=== PATIENT | female | born 1935 | race Caucasian/White ===

== ENCOUNTER → 2016-08-03 | Outpatient (CLI) | payer MEDICARE, BC ==
--- NOTE | 2016-08-03 13:06 | WOMENS IMAGING REPORT ---
EXAM DESCRIPTION: BILAT SCREENING MAMMO W/CAD COMPLETED DATE/TIME: 08/03/2016 10:50 am REASON FOR STUDY: Z12.31, ROUTINE SCREENING MAMMO Z12.31 ENCNTR SCREEN MAMMOGRAM FOR MALIGNANT NEOP LASM OF BELEM COMPARISON: 2008 to 2015 TECHNIQUE: Standard craniocaudal and mediolateral oblique views of each breast recorded using digita l acquisition. LIMITATIONS: None. FINDINGS: RIGHT BREAST MASSES: No suspicious masses. CALCIFICATIONS: No new or suspicious calcifications. ARCHITECTURAL DISTORTION: None. DEVELOPING DENSITY: None. ASYMMETRY: None noted. OTHER: 1.8 cm prominent lymph node in the right axilla not seen previously. LEFT BREAST MASSES: No suspicious masses. CALCIFICATIONS: No new or suspicious calcifications. ARCHITECTURAL DISTORTION: None. DEVELOPING DENSITY: None. ASYMMETRY: None noted. OTHER: No other significant findings. Read with the assistance of CAD. .[facility] - R2 Cenova Version 1.3 .[facility] Imaging - R2 Cenova Version 1.3 .[facility] Imaging - R2 Cenova Version 2.4 .[facility] - R2 Cenova Version 2.4 .[facility] - R2 Miner Helper Version 9.2 IMPRESSION: Prominent right axillary lymph node not seen previously. BREAST DENSITY: b. There are scattered areas of fibroglandular density. BIRAD: 0 Incomplete: Needs Additional Imaging Evaluation and/or prior Mammograms for Comparison. RECOMMENDATION: RECOMMENDED FOLLOW-UP: Right axillary ultrasound. The patient will be contacted for additional imaging. COMMENT: The patient has been notified of the results by letter per SA requirements. Additional no tification policies are in place for contacting patient with suspicious or incomplete findings. Quality ID #[id number]: The [employer] recommends an annual screening mammogram for women aged 40 years or over. This facility utilizes a reminder system to ensure that all patients receive reminder letters, and/or direct phone calls for appointments. This includes reminders for routine scr eening mammograms, diagnostic mammograms, or other Breast Imaging Interventions when appropriate. Th is patient will be placed in the appropriate reminder system. The [employer] (ACR) has developed recommendations for screening MRI of the breast s in certain patient populations, to be used in conjunction with mammography. Breast MRI surveillanc e may be appropriate for women with more than 20% lifetime risk of developing breast cancer as deter mined by genetic testing, significant family history of the disease, or history of mantle radiation f or Hodgkins Disease. ACR Practice Guidelines 2008. TECHNICAL DOCUMENTATION: FINDING NUMBER: (1) ASSESSMENT: (1) JOB ID: [id number] NC-62 2010 [email or web address]- All Rights Reserved
== END ==
LOC: WI 14:27
PROVIDERS: ATTEND Internal Medicine Medical Oncology
DX: Z12.31 Encounter for screening mammogram for malignant neoplasm of breast (principal); R59.0 Localized enlarged lymph nodes
CPT/HCPCS: 77067; G0202

== ENCOUNTER → 2016-08-13 | Outpatient (CLI) | payer MEDICARE, BC ==
--- NOTE | 2016-08-14 14:03 | WOMENS IMAGING REPORT ---
EXAM DESCRIPTION: U/S BREAST UNILAT LIMITED COMPLETED DATE/TIME: 08/13/2016 10:35 am REASON FOR STUDY: R92.2, INCONCLUSIVE MAMMO R92.2 INCONCLUSIVE MAMMOGRAM COMPARISON: Multiple since 2007 TECHNIQUE: Real-time and static grayscale imaging performed of the right breast targeted to the area of mammographic concern. Selected color Doppler images recorded. LIMITATIONS: None. FINDINGS: Ultrasound of the far upper outer quadrant/axilla right breast was performed. There are 2 hypoechoic solid nodules without central hilar fat, worrisome for abnormal lymph nodes. The larger of these two nodules measures 1.7 x 1.2 cm in size, the smaller nodule is 0.8 x 0.8 cm in size. Ultr asound-guided core biopsy of these nodules, with post biopsy clip placement is recommended. IMPRESSION: Solid nodules in the right axilla, may be abnormal lymph nodes. Ultrasound-guided core biopsy and post biopsy clip placement in these nodules is recommended. BIRAD: 4 Suspicious. Biopsy should be considered. RECOMMENDATION: RECOMMENDED FOLLOW-UP: Ultrasound-guided core biopsy and post biopsy clip placement of these right axillary nodules is recommended COMMENT: The [employer] (ACR) has developed recommendations for screening MRI of the breasts in certain patient populations, to be used in conjunction with mammography. Breast MRI s urveillance may be appropriate for women with more than 20% lifetime risk of developing breast cancer as determined by genetic testing, significant family history of the disease, or history of mantle r adiation for Hodgkins Disease. ACR Practice Guidelines 2008. TECHNICAL DOCUMENTATION: JOB ID: [id number] [employer]- All Rights Reserved
== END ==
LOC: WI 09:56
PROVIDERS: ATTEND Internal Medicine Medical Oncology
DX: R92.2 Inconclusive mammogram (principal)
CPT/HCPCS: 76642

== ENCOUNTER → 2016-08-28 | Day surgery (SDC) | payer MEDICARE, BC ==
[~2016-08-28] MED LIST: LIDOCAINE 2% INJ (20 MG/ML) 20 ML MDV ONE
--- NOTE | 2016-09-02 09:12 | WOMENS IMAGING REPORT ---
EXAM DESCRIPTION: U/S BREAST BX; RIGHT DIG DX MAMMO NO CHG COMPLETED DATE/TIME: 08/28/2016 12:34 pm; 08/28/2016 12:43 pm REASON FOR STUDY: N63, BREAST LUMP; S/P US BIOPSY RIGHT AXILLA FOR CLIP PLACEMENT MLO ONLY N63 UNSP ECIFIED LUMP IN BREAST COMPARISON: MULTIPLE SINCE 2008 TECHNIQUE: The procedure was discussed with the patient and the patient agreed to proceed. The patient was scanned and the area of interest in the right axilla 15 cm from the nipple of the rig ht breast was localized. This correlates with the area of concern on prior imaging studies. This are a was targeted for ultrasound-guided core biopsy. After sterile skin prep and 4 mL local lidocaine 1% for skin and deep tissue anesthesia, a 14 gauge c oaxial core biopsy needle was used to obtain several cores of tissue from the lesion. Under ultrasou nd guidance, a ribbon clip was placed in the areas sampled. There were no immediate post-procedure c omplications. MAMMOGRAM: Post-procedure two view mammogram was acquired in the digital mammogram suite. The clip wa s outside the field of view in the axilla. No significant hematoma. Pathology yields a diagnosis of malignancy, metastatic adenocarcinoma, similar to the patient's origi nal right breast primary Pathology is concordant. LIMITATIONS: None. FINDINGS: Ultrasound guided breast biopsy as described above. POST PROCEDURE MAMMOGRAMS FOR MARKER PLACEMENT: Yes IMPRESSION: ULTRASOUND-GUIDED CORE BIOPSY OF THE RIGHT BREAST YIELDS A DIAGNOSIS OF metastatic adeno carcinoma BI-RADS 6 Known biopsy-proven malignancy. Appropriate action should be taken. COMMENT: COMMUNICATION: This result was discussed with the patient, 1400 hours 08/31/2016 Patient medication list reviewed: Yes- Quality ID# [id number]:Eligible professional attests to documenting i n the medical record they obtained, updated, or reviewed the patient's current medications. TECHNICAL DOCUMENTATION: JOB ID: [id number] [employer]- All Rights Reserved
== END ==
LOC: WI 10:27
PROVIDERS: ATTEND Internal Medicine Medical Oncology
PROC: 0HBT3ZX Excision of Right Breast, Percutaneous Approach, Diagnostic (ICD-10-PCS; principal; 2016-08-28)
DX: C77.3 Secondary and unspecified malignant neoplasm of axilla and upper limb lymph nodes (principal); Z17.1 Estrogen receptor negative status [ER-]
CPT/HCPCS: 88185 ×15; 88184; 88233; 88262; 88342 ×2; 88341 ×2; 88305 ×2; 19083; J3490

== ENCOUNTER 2016-09-23 01:28 | Emergency (ER) | payer MEDICARE, BC ==
[2016-09-23] MEDS ORDERED: LIDOCAINE 1% INJ-PF (10 MG/ML) 30 ML SDV INJ ONE (03:06)
--- NOTE | 2016-09-23 03:29 | ER Document Report ---
ED General - General Chief Complaint: Breast Problem Stated Complaint: PAIN IN BREAST Time Seen by Provider: 09/23/16 02:54 Notes: 81-year-old female with right-sided breast cancer status post surgery presents with left breast redness and swelling for 3 or 4 days worsening and refractory to clindamycin which was prescribed by her cancer doctor yesterday. She is apparently scheduled to have a "lanced" on the 80s. No fevers or chills but increasing pain. She has had a cyst there for years but never been this inflamed. TRAVEL OUTSIDE OF THE [place] IN LAST 30 DAYS: No - Related Data Allergies/Adverse Reactions: No Known Drug Allergies Allergy (Mild, Verified 09/23/16 01:52) Past Medical History - General Information source: Patient - Social History Smoking Status: Never Smoker Family History: None Patient has suicidal ideation: No Patient has homicidal ideation: No Renal/ Medical History: Denies: Hx Peritoneal Dialysis Review of Systems - Review of Systems Notes: REVIEW OF SYSTEMS GEN: Denies fever, chills, weight loss ENT: Denies sore throat, nasal discharge, ear pain EYES: Denies blurry vision, eye pain, discharge CV: Denies chest pain, palpitations, edema RESP: Denies cough, shortness of breath, wheezing GI: Denies abdominal pain, nausea, vomiting, diarrhea MSK: Denies joint pain/swelling, edema, SKIN: Denies rash, skin lesions LYMPH: Denies swollen glands/lymph nodes NEURO: Denies headache, focal weakness or numbness, dizziness PSYCH: Denies depression, suicidal or homicidal ideation PHYSICAL EXAMINATION General: No acute distress, well-nourished Head: Atraumatic, normocephalic ENT: Mouth normal, oropharynx moist, no exudates or tonsillar enlargement Eyes: Conjunctiva normal, pupils equal, lids normal Neck: No JVD, supple, no guarding Exam chaperoned by nurse Deena : Breast with an area of induration and fluctuance approximately 10 x 4" surrounding a small "head" positive tenderness. GI: Nondistended, soft, no tenderness to palpation, no rebound or guarding Ext: No deformities, no edema, normal range of motion in upper and lower ext Back: No CVA or midline TTP Skin: No rash, warm Lymphatic: No lymphadeopathy noted Neuro: Awake, alert. Face symmetric. GCS 15. Physical Exam - Vital signs Vitals: Temp Pulse Resp BP Pulse Ox 98.2 F 82 20 148/73 H 96 09/23/16 01:52 09/23/16 01:52 09/23/16 01:52 09/23/16 01:52 09/23/16 01:52 Course - Re-evaluation Re-evalutation: 09/23/16 03:18 Breast abscess with surrounding induration and possible cellulitis. Will incise and drain with patient's verbal consent and prescribed Bactrim. Incised and drained using loop drainage for cosmesis. Patient was educated on management of the loop drain at home and will follow up with her cancer doctor or primary care in 2 days for a wound check. As you stop taking clindamycin and begin Bactrim. I have discussed with the patient there likely diagnosis, aftercare plan, follow-up plans and my usual and customary return precautions. They verbalized understanding of this. - Vital Signs Vital signs: Temp Pulse Resp BP Pulse Ox 98.2 F 82 20 148/73 H 96 09/23/16 01:52 09/23/16 01:52 09/23/16 01:52 09/23/16 01:52 09/23/16 01:52 Procedures - Incision and Drainage Left Medial Chest Time completed: 03:30 Type: Complex Anesthetic type: 1% Lidocaine mL's of anesthetic: 3 Blade size: 11 I&D procedure: Betadine prep applied Incision Method: Incision made by scalpel Amount/type of drainage: 10Cc pus Notes: 09/23/16 03:30 Relations were broken up with hemostats. Incisions were made over the greatest area of fluctuance, 2. Loop drainage was utilized with the cuff of a sterile glove. Sterile fashion. Culture not sent. Discharge - Discharge Clinical Impression: Breast abscess Condition: Good Disposition: HOME, SELF-CARE Instructions: Abscess ([facility]) Additional Instructions: Please rotate the loop drain 3 times a day after applying warm heat. He will experience drainage of blood and pus. Once the drainage stops and the redness is resolved he may clip the loop and remove it. Please keep it covered. Please see your regular doctor in 2 days for a wound check. Please stop taking clindamycin and start taking Bactrim which I will prescribe. Prescriptions: Sulfamethoxazole/Trimethoprim [Bactrim Ds Tablet] 1 each PO BID #14 tablet Referrals: LUCILLE ROSADO MD [ACTIVE STAFF] - Follow up as needed
[2016-09-23] MEDS ORDERED: SULFAMETHOXAZOLE/TRIMETHOPRIM 800-160 MG TABLET PO ONE (03:32)
[2016-09-23 03:49] VITALS: BP 114/69
== END 2016-09-23 04:07 | disposition home or self-care (01) ==
LOC: ER 01:28
PROC: 0H9UXZZ (ICD-10-PCS; principal; 2016-09-23)
DX: N61.1 Abscess of the breast and nipple (principal)
CPT/HCPCS: 99283; 10061; A9270

== ENCOUNTER → 2016-09-30 | Outpatient (CLI) | payer MEDICARE, BC ==
--- NOTE | 2016-09-30 10:52 | RADIOLOGY REPORT (SQ) ---
EXAM DESCRIPTION: CT CHEST WITH; CT ABD/PELVIS WITH IV ONLY COMPLETED DATE/TIME: 09/30/2016 9:28 am; 09/30/2016 9:30 am REASON FOR STUDY: BREAST CA (C50.91) C50.911 MALIGNANT NEOPLASM OF UNSP SITE OF RIGHT FEMALE JOSHUA COMPARISON: Ultrasound-guided axillary lymph node biopsy 08/28/2016 Bilateral mammography 08/03/2016 CT abdomen pelvis 07/02/2014 CONTRAST TYPE AND DOSE: contrast/concentration: Isovue 370.00 mg/ml; Total Contrast Delivered: 100.0 ml; Total Saline Delivered: 72.0 ml RENAL FUNCTION: Creatinine 0.9 TECHNIQUE: CT scan of the chest performed using helical scanning technique with dynamic intravenous contrast injection. Images reviewed with lung, soft tissue and bone windows. Reconstructed coronal a nd sagittal MPR images reviewed. All images stored on PACS. CT scan of the abdomen and pelvis performed with intravenous and without oral contrastusing helical s carla technique with dynamic intravenous contrast injection. Images reviewed with lung, soft tissu e and bone windows. Reconstructed coronal and sagittal MPR images reviewed. Delayed images for eval uation of the urinary system also acquired and evaluated. All images stored on PACS. All CT scanners at this facility use dose modulation, iterative reconstruction, and/or weight based d osing when appropriate to reduce radiation dose to as low as reasonably achievable (ALARA). [facility]: Dose Right [facility]: CareDose [facility]: Dose Right [facility]: Teradose 4D [facility]: Smart Technologies RADIATION DOSE: Up-to-date CT equipment and radiation dose reduction techniques were employed. CTDIv ol: 17.0 - 27.4 mGy. DLP: 3534 mGy-cm. . LIMITATIONS: None. FINDINGS: CHEST: LUNGS AND PLEURA: No opacities, nodules, masses. No pneumothorax. No effusions. HILAR AND MEDIASTINAL STRUCTURES: No identified masses or abnormal nodes. HEART AND VASCULAR STRUCTURES: No aneurysm or dissection. No central pulmonary emboli. No pericardi al effusion. Moderate coronary artery calcification HARDWARE: None. THYROID AND OTHER SOFT TISSUES: Thyroid unremarkable. Previously biopsied 8 mm right axillary lymph node, additional 10 mm in 1.8 cm right axillary lymph n odes. Right breast skin thickening and retroareolar calcifications. No definite right breast domina nt mass by CT. On the left side, axial image 21, a 3.7 x 2.3 cm area of left upper inner quadrant breast parenchymal skin thickening and subcutaneous edema is present, question focal cellulitis. Clinical correlation recommended. BONES: No significant finding. No findings worrisome for thoracic spine lytic or blastic lesions T5 vertebral body hemangioma. OTHER: No other significant finding. ABDOMEN AND PELVIS: LIVER: Normal size. No masses. No dilated ducts. SPLEEN: Normal size. No focal lesions. PANCREAS: No masses. No significant calcifications. No adjacent inflammation or peripancreatic fluid collections. Pancreatic duct not dilated. GALLBLADDER: Surgically absent ADRENAL GLANDS: No significant masses or asymmetry. RIGHT KIDNEY AND URETER: No solid masses. 9 mm right midpole renal cortical cyst. No significant ca lcification. No hydronephrosis or hydroureter. LEFT KIDNEY AND URETER: No solid masses. 2 cm left midpole renal cortical cysts. No significant tony cification. No hydronephrosis or hydroureter. AORTA AND VESSELS: No aneurysm. No dissection. Renal arteries, SMA, celiac without stenosis. RETROPERITONEUM: No retroperitoneal adenopathy, hemorrhage or masses. BOWEL AND PERITONEAL CAVITY: No masses or inflammatory changes. No free fluid or peritoneal masses. Surgical clips post partial sigmoid colectomy APPENDIX: Normal. ABDOMINAL WALL: Small fat containing umbilical hernia axial image 53 BONES: Old right hip replacement. Benign focal fat anterior L1 vertebral body. PELVIS: No other significant finding. Normal size postmenopausal female pelvic organs. No pelvic ad enopathy or masses. Bladder unremarkable. IMPRESSION: Right axillary lymph nodes, 8 mm node previously biopsied under ultrasound yielding a ma lignant diagnosis Question focal cellulitis left upper inner quadrant breast again, clinical correlation recommended No CT evidence of widespread metastatic disease over the chest abdomen or pelvis. TECHNICAL DOCUMENTATION: JOB ID: [id number] Quality ID # [id number]: Final reports with documentation of one or more dose reduction techniques (e.g., Au tomated exposure control, adjustment of the mA and/or kV according to patient size, use of iterative reconstruction technique) 2010 [employer]- All Rights Reserved
--- NOTE | 2016-09-30 12:36 | RADIOLOGY REPORT (SQ) ---
EXAM DESCRIPTION: NM WHOLE BODY BONE SCAN COMPLETED DATE/TIME: 09/30/2016 12:24 pm REASON FOR STUDY: BREAST CA (C50.911) C50.911 MALIGNANT NEOPLASM OF UNSP SITE OF RIGHT FEMALE JOSHUA COMPARISON: No available imaging studies for comparison. RADIONUCLIDE AND DOSE: 22 millicuries Tc99m MDP. The route of agent administration: Intravenous. ADDITIONAL DRUGS AND DOSES: None. TECHNIQUE: Routine delayed images at 3 hours post radionuclide injection acquired of the bony skelet on including anterior and posterior whole-body projections and additional focused images as needed. LIMITATIONS: None. FINDINGS: BONES: Normal visualization without areas of photopenia or increased bony uptake of radiop harmaceutical. KIDNEYS: Symmetric excretion without obstruction. OTHER: Bilateral knee arthroplasties. Right hip arthroplasty. IMPRESSION: There is no evidence of metastatic disease to bone. COMMENT: PQRS 3570F: Current bone scan is compared with any available plain radiographs, prior bone scans, and CT/MRI. TECHNICAL DOCUMENTATION: JOB ID: [id number] [employer]- All Rights Reserved
== END ==
LOC: RAD 08:38
PROVIDERS: ATTEND Internal Medicine
DX: C50.911 Malignant neoplasm of unspecified site of right female breast (principal)
CPT/HCPCS: 82565; 78306; 71260; 74177; A9561; Q9969

== ENCOUNTER → 2016-11-05 | Outpatient (CLI) | payer MEDICARE, BC ==
--- NOTE | 2016-11-05 19:16 | RADIOLOGY REPORT (SQ) ---
EXAM DESCRIPTION: MRI BREAST BILAT W AND/OR WO COMPLETED DATE/TIME: 11/05/2016 10:45 am REASON FOR STUDY: BREAST CA C50.411 MALIG NEOPLM OF UPPER-OUTER QUADRANT OF RIGHT FEMALE COMPARISON: CT chest 09/30/2016 Right breast ultrasound-guided biopsy and post biopsy mammogram 08/28/2016 Right breast ultrasound 08/13/2016 Multiple mammograms dating back to 2008 PATHOLOGIC CORRELATION: Ultrasound-guided core biopsy 08/28/2016 1.6 cm lymph node right axilla yielde d a diagnosis of metastatic adenocarcinoma CONTRAST TYPE AND DOSE: 20 mL Prohance. RENAL FUNCTION: GFR > 60. TECHNIQUE: MR imaging performed with a dedicated breast coil. Pre contrast T1 and T2 weighted images . Pre contrast and post contrast enhanced T1 weighted images with fat saturation. Subtraction images, 3D thick and thin MIPS, and kinetic analysis performed on an independent workstat ion. ([employer] workstation) Magnet strength: 1.5 T LIMITATIONS: None. FINDINGS: BREAST DENSITY: b. There are scattered areas of fibroglandular density. BACKGROUND PARENCHYMAL ENHANCEMENT:Minimal. RIGHT BREAST: There is abnormal skin thickening with avid contrast enhancement along the left nipple measuring 2 point cm transverse by 9 mm AP. This has a suspicious time activity curve with brisk was h-in of contrast and is worrisome for recurrent malignancy along the old right areolar incision. Thi s finding is best shown on axial series 603, image 107. No clumped, regional/segmental ductal enhan cement. CHEST WALL: Normal tissue planes. No abnormal internal mammary nodes. AXILLA: The previously biopsied right axillary lymph node has contrast-enhancement suspicious for ma lignancy, and measures 16 mm in diameter on axial series 603, image 147. The biopsy clip during ultr asound-guided core biopsy did not deploy. LEFT BREAST:In the skin along the cleavage area, medial right breast, skin thickening and enhancement with contrast enhancement in the subcutaneous fat is seen. This has an indeterminate time activity curves. This correlates with mild skin thickening on CT exam 09/30/2016. On prior mammograms, a sebac eous cyst was present in this area. This could be residual inflammatory reaction post resection or r upture of the sebaceous cyst. No clumped, regional/segmental ductal enhancement. CHEST WALL: Normal tissue planes. No abnormal internal mammary nodes. AXILLA: Normal axillary and retro-pectoral nodes. OTHER:No identified liver, bone, or lung lesions. No other significant incidental findings. IMPRESSION: Abnormal skin thickening with contrast enhancement, along the right breast remote prior areolar incision. This area is suspicious for tumor Previously biopsied 16 mm right axillary lymph node with contrast enhancement pattern compatible with malignancy. Benign postinflammatory changes medial left breast cleavage area BIRAD: RIGHT BREAST: 6 Known biopsy-proven malignancy. Appropriate action should be taken. LEFT BREAST: 2 Benign findings. RECOMMENDATION: RECOMMENDED FOLLOW-UP: Follow-up as per surgeon TECHNICAL DOCUMENTATION: JOB ID: [id number] [employer]- All Rights Reserved
== END ==
LOC: RAD 08:35
PROVIDERS: ATTEND Internal Medicine
DX: C50.411 Malignant neoplasm of upper-outer quadrant of right female breast (principal)
CPT/HCPCS: 82565; A9576; C8906; 77059

== ENCOUNTER → 2017-08-10 | Outpatient (CLI) | payer MEDICARE, BC ==
--- NOTE | 2017-08-11 07:42 | WOMENS IMAGING REPORT ---
EXAM DESCRIPTION: 3D SCREENING MAMMO LEFT COMPLETED DATE/TIME: 08/10/2017 11:04 am REASON FOR STUDY: ROUTINE SCREENING;Z12.31 Z12.31 ENCNTR SCREEN MAMMOGRAM FOR MALIGNANT NEOPLASM OF BELEM COMPARISON: Multiple since 2008 TECHNIQUE: Standard craniocaudal and mediolateral oblique views of the left breast recorded using di gital acquisition and breast tomosynthesis. Patient is post right mastectomy. LIMITATIONS: None. FINDINGS: BREAST: Left No masses, calcifications or architectural distortion. No areas of suspicion. Old biopsy site marker left breast upper outer quadrant unchanged from 2008 Read with the assistance of CAD. .[facility] - R2 Cenova Version 1.3 .[facility] Imaging - R2 Cenova Version 1.3 .[facility] - R2 Cenova Version 2.4 .[facility] - R2 Cenova Version 2.4 .[facility] - R2 [employer] Version 9.2 IMPRESSION: NORMAL MAMMOGRAM. BIRADS 1. BREAST DENSITY: b. There are scattered areas of fibroglandular density. BIRAD: 1 Negative RECOMMENDATION: RECOMMENDATION: ROUTINE SCREENING. Please continue yearly left breast screening in July 2018. Consider left breast tomosynthesis COMMENT: The patient has been notified of the results by letter per MQSA requirements. Additional no tification policies are in place for contacting patient with suspicious or incomplete findings. Quality ID #225: The [employer] recommends an annual screening mammogram for women aged 40 years or over. This facility utilizes a reminder system to ensure that all patients receive reminder letters, and/or direct phone calls for appointments. This includes reminders for routine scr eening mammograms, diagnostic mammograms, or other Breast Imaging Interventions when appropriate. Th is patient will be placed in the appropriate reminder system. The [employer] (ACR) has developed recommendations for screening MRI of the breast s in certain patient populations, to be used in conjunction with mammography. Breast MRI surveillance may be appropriate for women with more than 20% lifetime risk of developing breast cancer as determi gualberto by genetic testing, significant family history of the disease, or history of mantle radiation for Hodgkins Disease. ACR Practice Guidelines 2008. DBT Technology DBT is a type of tomographic mammography. With conventional mammography, overlapping breast tissue ma y make lesions difficult to detect, even with good compression. DBT uses an x-ray tube that rotates a round the breast, taking images at different angles. These images are then combined to create thin sl ices of the breast that the radiologist can view as a 3D reconstruction. The Hologic unit can perform full-field digital mammograms (2D imaging); or DBT (3D imaging); or both, in a combination mode that quickly performs both the mammogram and the tomosynthesis scan while the breast is still compressed. RS 6045F: Fluoroscopic imaging is not utilized for breast tomosynthesis. TECHNICAL DOCUMENTATION: FINDING NUMBER: (1) ASSESSMENT: (1) JOB ID: [id number] [employer]- All Rights Reserved Reading location - IP/workstation name: [facility]-[email or web address]
== END ==
LOC: WI 11:12
PROVIDERS: ATTEND Physician Assistant
DX: Z12.31 Encounter for screening mammogram for malignant neoplasm of breast (principal)

== ENCOUNTER 2017-10-06 13:39 | Emergency (ER) | payer MEDICARE, BC ==
--- NOTE | 2017-10-06 14:26 | ER Document Report ---
ED Medical Screen (RME) - General Chief Complaint: Shortness Of Breath Stated Complaint: SHORTNESS OF BREATH Time Seen by Provider: 10/06/17 14:20 Notes: 82 years old female presents today with progressive increase in shortness of breath particularly on exertion as well as progressive increasing weight gain. No chest pain denies any fever chills but had cough on and off particularly first thing in the morning. Sometimes it is yellow in color. Denies any precordial chest pain left arm numbness tingling sensation. On examination-morbid obesity and bilateral lower leg swelling due to venous stasis. No pitting edema. TRAVEL OUTSIDE OF THE [place] IN LAST 30 DAYS: No - Related Data Allergies/Adverse Reactions: adhesive tape Allergy (Verified 12/23/16 06:14) Generalized Itching Penicillins Allergy (Verified 12/23/16 06:14) Generalized Itching Past Medical History - Social History Chew tobacco use (# tins/day): No Frequency of alcohol use: None Drug Abuse: None - Past Medical History Cardiac Medical History: Reports: Hx Hypertension - ON MEDS Denies: Hx Atrial Fibrillation, Hx Congestive Heart Failure, Hx Coronary Artery Disease, Hx Heart Attack, Hx Hypercholesterolemia, Hx Peripheral Vascular Disease, Hx Pulmonary Embolism, Hx Heart Murmur Pulmonary Medical History: Reports: Hx Asthma - H/O IN PAST, NO INHALER AT THIS TIME, Hx Pneumonia - H/O NOT RECENTLY, Hx Sleep Apnea - WEARS C-PAP, ADVISED TO BRING WITH DAY OF SX Denies: Hx Bronchitis, Hx COPD, Hx Respiratory Failure, Hx Tuberculosis Neurological Medical History: Denies: Hx Cerebrovascular Accident, Hx Seizures Renal/ Medical History: Denies: Hx Ovarian Cysts, Hx Peritoneal Dialysis, Hx Pelvic Inflammatory Disease Malignancy Medical History: Reports: Hx Breast Cancer - [place] 2001, LUMPECTOMY. Denies: Hx Cervical Cancer, Hx Lung Cancer, Hx Ovarian Cancer GI Medical History: Denies: Hx Crohn's Disease, Hx Gastroesophageal Reflux Disease, Hx Hiatal Hernia, Hx Irritable Bowel, Hx Liver Failure, Hx Pancreatitis , Hx Ulcer Musculoskeltal Medical History: Reports Hx Arthritis - GENERALIZED, Denies Hx Fibromyalgia, Denies Hx Multiple Sclerosis, Denies Hx Muscular Dystrophy Psychiatric Medical History: Denies: Hx Dementia Traumatic Medical History: Denies: Hx Fractures Infectious Medical History: Past Surgical History: Reports: Hx Bowel Surgery - SM PART OF COLON REMOVED FEW YRS AGO, Hx Cholecystectomy, Hx Herniorrhaphy - VENTRAL HERNIA REPAIR, Hx Mastectomy - R LUMPECTOMY 2001, Hx Tonsillectomy - YRS AGO. Denies: Hx Appendectomy, Hx Section, Hx Colostomy, Hx Coronary Artery Bypass Graft , Hx Gastric Bypass Surgery, Hx Hysterectomy, Hx Pacemaker, Hx Tubal Ligation - Immunizations History of Influenza Vaccine for 11/2016 - 04/2017 Season: Yes Influenza Administration Date for 11/2016 - 04/2017 Season: 12/17/16 Physical Exam - Vital signs Vitals: Temp Pulse Resp BP Pulse Ox 99.2 F 62 18 171/66 H 96 10/06/17 13:43 10/06/17 13:43 10/06/17 13:43 10/06/17 13:43 10/06/17 13:43 Course - Vital Signs Vital signs: Temp Pulse Resp BP Pulse Ox 99.2 F 62 18 171/66 H 96 10/06/17 13:43 10/06/17 13:43 10/06/17 13:43 10/06/17 13:43 10/06/17 13:43 Doctor's Discharge - Discharge Referrals: GEORGIA LUCAS PA-C [Primary Care Provider] - Follow up as needed
[2017-10-06 15:40] LABS: ABSOLUTE EOSINOPHILS # (AUTO) 0.3 10^3/uL (0.0-0.6); ABSOLUTE LYMPHOCYTES (AUTO) 1.4 10^3/uL (0.5-4.7); ABSOLUTE MONOCYTES (AUTO) 0.5 10^3/uL (0.1-1.4); ABSOLUTE NEUT (AUTO) 5.8 10^3/uL (1.7-8.2); BASOPHILS % (AUTO) 0.5 % (0-2); EOSINOPHILS % (AUTO) 3.2 % (0-6); HEMOGLOBIN 14.8 g/dL (12.0-15.5); LYMPHOCYTES % (AUTO) 17.7 % (13-45); MEAN CORPUSCULAR HEMOGLOBIN 31.6 pg (27.0-33.4); MEAN CORPUSCULAR HGB CONC 35.3 g/dL (32.0-36.0); MEAN CORPUSCULAR VOLUME 89 fl (80-97); MONOCYTES % (AUTO) 5.9 % (3-13); PLATELET COUNT 204 10^3/uL (150-450); RED BLOOD COUNT 4.69 10^6/uL (3.72-5.28); RED CELL DISTRIBUTION WIDTH 12.9 % (11.5-14.0); SEGMENTED NEUTROPHILS % (AUTO) 72.7 % (42-78); TOTAL CELLS COUNTED % (AUTO) 100 %; WHITE BLOOD COUNT 7.9 10^3/uL (4.0-10.5)
[2017-10-06 15:57] LABS: ALANINE AMINOTRANSFERASE 17 U/L (9-52); ALBUMIN 3.9 g/dL (3.5-5.0); ALKALINE PHOSPHATASE 94 U/L (38-126); ANION GAP 11 (5-19); ASPARTATE AMINO TRANSFERASE 21 U/L (14-36); BILIRUBIN,DIRECT 0.2 mg/dL (0.0-0.4); BILIRUBIN,TOTAL 0.8 mg/dL (0.2-1.3); BLOOD UREA NITROGEN 13 mg/dL (7-20); CALCIUM 9.9 mg/dL (8.4-10.2); CARBON DIOXIDE 26 mmol/L (22-30); CHLORIDE 106 mmol/L (98-107); CREATINE KINASE 42 U/L (30-135); GLUCOSE 104 mg/dL (75-110); POTASSIUM 4.5 mmol/L (3.6-5.0); SODIUM 142.6 mmol/L (137-145); TOTAL PROTEIN 7.4 g/dL (6.3-8.2)
[2017-10-06 16:17] LABS: NT PRO BNP 167 pg/mL (<450)
[2017-10-06 16:19] LABS: TROPONIN I < 0.012 ng/mL
--- NOTE | 2017-10-06 16:33 | RADIOLOGY REPORT (SQ) ---
EXAM DESCRIPTION: CHEST SINGLE VIEW COMPLETED DATE/TIME: 10/06/2017 4:18 pm REASON FOR STUDY: Shortness of breath COMPARISON: None. EXAM PARAMETERS: NUMBER OF VIEWS: One view. TECHNIQUE: Single frontal radiographic view of the chest acquired. RADIATION DOSE: NA LIMITATIONS: None. FINDINGS: LUNGS AND PLEURA: Chronic scarring left lung base. No acute infiltrates or effusions. MEDIASTINUM AND HILAR STRUCTURES: No masses. Contour normal. HEART AND VASCULAR STRUCTURES: Cardiomegaly. The pulmonary vasculature is normal. BONES: Marked degenerative changes of the right shoulder with right AC arthrosis. HARDWARE: Surgical clips right axilla and right upper abdomen. OTHER: No other significant finding. IMPRESSION: Cardiomegaly. Chronic left basilar scarring. TECHNICAL DOCUMENTATION: JOB ID: [id number] 2010 [employer]- All Rights Reserved Reading location - IP/workstation name: [email or web address]
[2017-10-06] MEDS ORDERED: IPRATROPIUM/ALBUTEROL 0.5-2.5 MG/3 ML AMPUL NEB ONE (18:09)
--- NOTE | 2017-10-06 18:26 | ER Document Report ---
ED General - General Chief Complaint: Shortness Of Breath Stated Complaint: SHORTNESS OF BREATH Time Seen by Provider: 10/06/17 14:20 Notes: This is a 82-year-old female to the emergency department chief complaint of shortness of breath. States that she is having some wheezing and cough. Has had this before in the past. Was on Advair and albuterol and that seemed to help. Patient is a breast cancer survivor. Has a recent mastectomy with 4 out of the lymph nodes that were positive. Had all of her lymph nodes removed but has decided not to undergo chemotherapy or radiation and just have the surgery. Patient followed by Dr. Mcconnell and Dr. Marie. Patient states that she denies any chest pain at this time. Denies any lower extremity edema or swelling. No previous history of DVT or PE. Patient is on an ROCHELLE inhibitor and recently had a medication price changer which one of the medications had 2 medications and one pill now she takes 2 pills. Since that time she has been having some issues. He denies any fever, chills or sweats at this time. TRAVEL OUTSIDE OF THE [place] IN LAST 30 DAYS: No - HPI Onset: Yesterday Onset/Duration: Gradual, Better Severity: Mild Pain Level: 0 - Related Data Allergies/Adverse Reactions: adhesive tape Allergy (Verified 12/23/16 06:14) Generalized Itching Penicillins Allergy (Verified 12/23/16 06:14) Generalized Itching Past Medical History - General Information source: Patient - Social History Smoking Status: Former Smoker Chew tobacco use (# tins/day): No Frequency of alcohol use: None Drug Abuse: None Lives with: Family Family History: None Patient has suicidal ideation: No Patient has homicidal ideation: No - Past Medical History Cardiac Medical History: Reports: Hx Hypertension - ON MEDS Denies: Hx Atrial Fibrillation, Hx Congestive Heart Failure, Hx Coronary Artery Disease, Hx Heart Attack, Hx Hypercholesterolemia, Hx Peripheral Vascular Disease, Hx Pulmonary Embolism, Hx Heart Murmur Pulmonary Medical History: Reports: Hx Asthma - H/O IN PAST, NO INHALER AT THIS TIME, Hx Pneumonia - H/O NOT RECENTLY, Hx Sleep Apnea - WEARS C-PAP, ADVISED TO BRING WITH DAY OF SX Denies: Hx Bronchitis, Hx COPD, Hx Respiratory Failure, Hx Tuberculosis Neurological Medical History: Denies: Hx Cerebrovascular Accident, Hx Seizures Renal/ Medical History: Denies: Hx Ovarian Cysts, Hx Peritoneal Dialysis, Hx Pelvic Inflammatory Disease Malignancy Medical History: Reports: Hx Breast Cancer - [place] 2002, LUMPECTOMY. Denies: Hx Cervical Cancer, Hx Lung Cancer, Hx Ovarian Cancer GI Medical History: Denies: Hx Crohn's Disease, Hx Gastroesophageal Reflux Disease, Hx Hiatal Hernia, Hx Irritable Bowel, Hx Liver Failure, Hx Pancreatitis , Hx Ulcer Musculoskeletal Medical History: Reports Hx Arthritis - GENERALIZED, Denies Hx Fibromyalgia, Denies Hx Multiple Sclerosis, Denies Hx Muscular Dystrophy Psychiatric Medical History: Denies: Hx Dementia Traumatic Medical History: Denies: Hx Fractures Infectious Medical History: Past Surgical History: Reports: Hx Bowel Surgery - SM PART OF COLON REMOVED FEW YRS AGO, Hx Cholecystectomy, Hx Herniorrhaphy - VENTRAL HERNIA REPAIR, Hx Mastectomy - R LUMPECTOMY 2001, Hx Tonsillectomy - YRS AGO. Denies: Hx Appendectomy, Hx Section, Hx Colostomy, Hx Coronary Artery Bypass Graft , Hx Gastric Bypass Surgery, Hx Hysterectomy, Hx Pacemaker, Hx Tubal Ligation - Immunizations Hx Pneumococcal Vaccination: 12/02/15 Review of Systems - Review of Systems Notes: Constitutional: denies: Chills, Diaphoresis, Fever, Malaise, Weakness EENT: denies: Eye discharge, Blurred vision, Tearing, Double vision, Nose congestion, Nose discharge, Throat swelling, Mouth pain Cardiovascular: denies: Palpitations, Heart racing,or Chest pain. Denies any peripheral edema. Patient does have some intermittent dyspnea and does wear CPAP. Respiratory: Patient endorses a dry cough, intermittent wheeze and some intermittent shortness of breath. Gastrointestinal: denies: Abdominal pain, Diarrhea, Nausea, Vomiting, Black stools, bright red blood in stool Genitourinary: denies: Burning, Dysuria, Discharge, Frequency, Flank pain, Hematuria Musculoskeletal: denies: Joint pain, Joint swelling, Muscle pain, Muscle stiffness, back pain Hematologic/Lymphatic: denies: Anemia, Easy bleeding, Easy bruising, Blood clots. Patient does have a history of breast cancer. Neurological/Psychological: denies: Confusion, Dementia, Depression, Loss of consciousness Skin: No lesions, no masses, no skin breakdown, no abscesses Physical Exam - Vital signs Vitals: Temp Pulse Resp BP Pulse Ox 99.2 F 62 18 171/66 H 96 10/06/17 13:43 10/06/17 13:43 10/06/17 13:43 10/06/17 13:43 10/06/17 13:43 Interpretation: Normal - General General appearance: Appears well, Alert - HEENT Head: Normocephalic, Atraumatic Eyes: Normal Pupils: PERRL - Respiratory Respiratory status: No respiratory distress Chest status: Nontender Breath sounds: Normal Chest palpation: Normal - Cardiovascular Rhythm: Regular Heart sounds: Normal auscultation Murmur: No - Abdominal Inspection: Normal Distension: No distension Bowel sounds: Normal Tenderness: Nontender Organomegaly: No organomegaly - Back Back: Normal, Nontender - Extremities General upper extremity: Normal inspection, Nontender, Normal color, Normal ROM , Normal temperature General lower extremity: Normal inspection, Nontender, Normal color, Normal ROM , Normal temperature, Normal weight bearing. No: Linette's sign - Neurological Neuro grossly intact: Yes Cognition: Normal Orientation: AAOx4 Sparkman Coma Scale Eye Opening: Spontaneous Chata Coma Scale Verbal: Oriented Sparkman Coma Scale Motor: Obeys Commands Sparkman Coma Scale Total: 15 Speech: Normal Motor strength normal: LUE, RUE, LLE, RLE Sensory: Normal - Psychological Associated symptoms: Normal affect, Normal mood - Skin Skin Temperature: Warm Skin Moisture: Dry Skin Color: Normal Course - Re-evaluation Re-evalutation: 10/06/17 19:38 Laboratory 10/06/17 10/06/17 10/06/17 15:25 15:25 15:25 WBC 7.9 RBC 4.69 Hgb 14.8 Hct 42.0 MCV 89 MCH 31.6 MCHC 35.3 RDW 12.9 Plt Count 204 Seg Neutrophils % 72.7 Lymphocytes % 17.7 Monocytes % 5.9 Eosinophils % 3.2 Basophils % 0.5 Absolute Neutrophils 5.8 Absolute Lymphocytes 1.4 Absolute Monocytes 0.5 Absolute Eosinophils 0.3 Absolute Basophils 0.0 Sodium 142.6 Potassium 4.5 Chloride 106 Carbon Dioxide 26 Anion Gap 11 BUN 13 Creatinine 0.68 Est GFR ( Amer) > 60 Est GFR (Non-Af Amer) > 60 Glucose 104 Calcium 9.9 Total Bilirubin 0.8 Direct Bilirubin 0.2 Neonat Total Bilirubin Not Reportable Neonat Direct Bilirubin Not Reportable Neonat Indirect Bili Not Reportable AST 21 ALT 17 Alkaline Phosphatase 94 Creatine Kinase 42 Troponin I < 0.012 NT-Pro-B Natriuret Pep 167 Total Protein 7.4 Albumin 3.9 Urine Color Urine Appearance Urine pH Ur Specific [place] Urine Protein Urine Glucose (UA) Urine Ketones Urine Blood Urine Nitrite Urine Bilirubin Urine Urobilinogen Ur Leukocyte Esterase Urine WBC (Auto) Urine RBC (Auto) Squamous Epi Cells Auto Urine Mucus (Auto) Urine Ascorbic Acid 10/06/17 10/06/17 17:32 18:36 WBC RBC Hgb Hct MCV MCH MCHC RDW Plt Count Seg Neutrophils % Lymphocytes % Monocytes % Eosinophils % Basophils % Absolute Neutrophils Absolute Lymphocytes Absolute Monocytes Absolute Eosinophils Absolute Basophils Sodium Potassium Chloride Carbon Dioxide Anion Gap BUN Creatinine Est GFR ( Amer) Est GFR (Non-Af Amer) Glucose Calcium Total Bilirubin Direct Bilirubin Neonat Total Bilirubin Neonat Direct Bilirubin Neonat Indirect Bili AST ALT Alkaline Phosphatase Creatine Kinase Troponin I < 0.012 NT-Pro-B Natriuret Pep Total Protein Albumin Urine Color YELLOW Urine Appearance CLEAR Urine pH 6.0 Ur Specific [place] 1.010 Urine Protein NEGATIVE Urine Glucose (UA) NEGATIVE Urine Ketones NEGATIVE Urine Blood NEGATIVE Urine Nitrite NEGATIVE Urine Bilirubin NEGATIVE Urine Urobilinogen NEGATIVE Ur Leukocyte Esterase NEGATIVE Urine WBC (Auto) 1 Urine RBC (Auto) 0 Squamous Epi Cells Auto <1 Urine Mucus (Auto) RARE Urine Ascorbic Acid NEGATIVE Chest X-Ray 10/06/17 14:25 IMPRESSION: Cardiomegaly. Chronic left basilar scarring. This is a very well-appearing pleasant 82-year-old female in no acute distress at this time. Does have a dry cough. Spent a long time visiting with the patient with regards to the potential of this cough being related to the ROCHELLE inhibitor. I am recommending that may be stopping that at this time would be a good idea and starting her on some losartan instead. I am going to prescribe her a albuterol MDI. Did feel a little bit better after the breathing treatment in the emergency department. I have given her strict instructions to follow-up with her regular doctor/provider. Of note, the chest x-ray showed cardiomegaly. The chest x-ray was however a relatively poor inspiratory film. Patient is not manifesting any florid signs of congestive heart failure. Her BNP is within normal limits. She has no significant peripheral edema. No pleural effusions. Recommending that her doctor discussed this with her and maybe get an outpatient echocardiogram and if symptoms get worse then obviously proceeding with CT scan of the chest with help as well. Really wants to go home and I am okay with letting her go home at this time. Will D/C in stable condition. - Vital Signs Vital signs: Temp Pulse Resp BP Pulse Ox 99.2 F 62 18 171/66 H 94 10/06/17 13:43 10/06/17 13:43 10/06/17 18:00 10/06/17 13:43 10/06/17 18:00 - Laboratory Result Diagrams: 10/06/17 15:25 10/06/17 15:25 - EKG Interpretation by Me EKG shows normal: Sinus rhythm, Hemphill, Intervals, QRS Complexes, ST-T Waves Rate: Bradycardia Discharge - Discharge Clinical Impression: Dyspnea Qualifiers: Dyspnea type: unspecified Qualified Code(s): R06.00 - Dyspnea, unspecified Condition: Good Disposition: HOME, SELF-CARE Instructions: Dyspnea, Nonspecific ([facility]) Additional Instructions: Please follow-up with your regular doctor. You may need more outpatient testing. In the event that you get worse please return. It may be beneficial for you to stop the benazepril as this could be contributing to your chronic cough and tickling feeling in her throat. I am going to write you a prescription for losartan which is called an angiotensin receptor anup. This has less of a chance to cause these symptoms then the ROCHELLE inhibitor called benazepril that you are on. Please discuss these changes with your doctor as there may be reasons for taking the benazepril that I am not privy to and I do not want to alter any plans with your medication without you discussing these changes with your primary care provider. Prescriptions: Albuterol Sulfate [Proair HFA Inhalation Aerosol 8.5 gm MDI] 2 puff IH Q4H PRN # 1 mdi PRN Reason: Losartan Potassium 50 mg PO DAILY 30 Days #30 tablet Referrals: GEORGIA LUCAS PA-C [Primary Care Provider] - Follow up as needed
[2017-10-06 19:00] LABS: APPEARANCE,URINE CLEAR; BILIRUBIN,URINE NEGATIVE (NEGATIVE); COLOR,URINE YELLOW; GLUCOSE, URINE NEGATIVE (NEGATIVE); KETONES,URINE NEGATIVE (NEGATIVE); LEUKOCYTE ESTERASE,URINE NEGATIVE (NEGATIVE); NITRITE,URINE NEGATIVE (NEGATIVE); PROTEIN,URINE NEGATIVE (NEGATIVE); UROBILINOGEN,URINE NEGATIVE mg/dL (<2.0)
[2017-10-06 21:14] VITALS: BP 147/70
--- NOTE | 2017-10-07 07:34 | EKG REPORT ---
SEVERITY:- BORDERLINE ECG - SINUS RHYTHM BORDERLINE LEFT AXIS DEVIATION BORDERLINE T ABNORMALITIES, ANTERIOR LEADS : Confirmed by: Chris Meyers MD 07-Oct-2017 07:33:39
== END 2017-10-06 21:13 | disposition home or self-care (01) ==
LOC: ER 13:39
DX: R06.00 Dyspnea, unspecified (principal); R06.02 Shortness of breath; R05 Cough; Z85.3 Personal history of malignant neoplasm of breast; Z90.10 Acquired absence of unspecified breast and nipple; Z87.891 Personal history of nicotine dependence; I10 Essential (primary) hypertension; Z79.899 Other long term (current) drug therapy; J45.909 Unspecified asthma, uncomplicated
CPT/HCPCS: 93005; 94640; 99285; 36415; 82550; 85025; 80053; 81001; 84484; 83880; 71045; 93010; A9270; J7620

== ENCOUNTER → 2018-08-11 | Outpatient (CLI) | payer MEDICARE, BC ==
--- NOTE | 2018-08-11 16:29 | WOMENS IMAGING REPORT ---
EXAM DESCRIPTION: 3D SCREENING MAMMO LEFT COMPLETED DATE/TIME: 08/11/2018 3:10 pm REASON FOR STUDY: Z12.31 ENCOUNTER FOR SCREENING MAMMOGRAM FOR MALIGNANT NEOPLASM OF BREAST Z12.31 ENCNTR SCREEN MAMMOGRAM FOR MALIGNANT NEOPLASM OF BELEM COMPARISON: Multiple since 2009 EXAM PARAMETERS: Standard craniocaudal and mediolateral oblique views of the breast recorded using d igital acquisition and breast tomosynthesis. Read with the assistance of CAD. .[facility] [place] - [employer] Manager Version 9.2 LIMITATIONS: None. FINDINGS: BREAST LATERALITY: Left No suspicious masses, suspicious calcifications or architectural distortion. No areas of suspicion. IMPRESSION: NEGATIVE MAMMOGRAM. BIRADS 1. BREAST DENSITY: a. The breasts are almost entirely fatty. BIRAD: ASSESSMENT: 1 Negative RECOMMENDATION: RECOMMENDATION: ROUTINE SCREENING. COMMENT: The patient has been notified of the results by letter per MQSA requirements. Additional no tification policies are in place for contacting patient with suspicious or incomplete findings. Quality ID #[id number]: The [employer] recommends an annual screening mammogram for women aged 40 years or over. This facility utilizes a reminder system to ensure that all patients receive reminder letters, and/or direct phone calls for appointments. This includes reminders for routine scr eening mammograms, diagnostic mammograms, or other Breast Imaging Interventions when appropriate. Th is patient will be placed in the appropriate reminder system. TECHNICAL DOCUMENTATION: FINDING NUMBER: (1) ASSESSMENT: (1) JOB ID: [id number] [employer]- All Rights Reserved Reading location - IP/workstation name: [email or web address]
== END ==
LOC: WI 14:41
PROVIDERS: ATTEND Physician Assistant
DX: Z12.31 Encounter for screening mammogram for malignant neoplasm of breast (principal)